=== PATIENT | female | born 1965 | race Caucasian/White ===

== ENCOUNTER → 2023-12-10 07:53 | Outpatient (REF) | payer OTHER, SELFPAY | LOC: WOUND 07:53 | PROVIDERS: ATTENDING PHYSICIAN Surgery | DX: L97.112 Non-pressure chronic ulcer of right thigh with fat layer exposed (principal); T81.31XA Disruption of external operation (surgical) wound, not elsewhere classified, initial encounter; Y83.8 Other surgical procedures as the cause of abnormal reaction of the patient, or of later complication, without mention of misadventure at the time of the procedure | CPT/HCPCS: 97597; 99203 ==

== ENCOUNTER → 2023-12-18 09:09 | Outpatient (REF) | payer OTHER, SELFPAY | LOC: WOUND 09:09 | PROVIDERS: ATTENDING PHYSICIAN Surgery | DX: L97.112 Non-pressure chronic ulcer of right thigh with fat layer exposed (principal); T81.31XA Disruption of external operation (surgical) wound, not elsewhere classified, initial encounter; Y83.8 Other surgical procedures as the cause of abnormal reaction of the patient, or of later complication, without mention of misadventure at the time of the procedure | CPT/HCPCS: 99212 ==